=== PATIENT | female | born 1985 | race Caucasian/White ===

== ENCOUNTER 2017-07-31 13:31 | Emergency (ER) | payer BC ==
[2017-07-31 15:05] LABS: Basophils % (Auto) 0.4 % (0.0-1.8); Eosinophils % (Auto) 0.4 % (0.0-4.3); Hematocrit 41.8 % (30.3-42.9); Hemoglobin 13.6 gm/dl (10.1-14.3); Mean Corpuscular HGB Conc 33 % (30-34); Mean Corpuscular Hemoglobin 28 pg (28-32); Mean Corpuscular Volume 87 fl (79-97); Platelet Count 282 K/mm3 (140-440); Red Blood Count 4.82 M/mm3 (3.65-5.03); White Blood Count 11.9 K/mm3 (4.5-11.0)
[2017-07-31 15:22] LABS: Alanine Aminotransferase 38 units/L (7-56); Albumin/Globulin Ratio 1.5 %; Alkaline Phosphatase 65 units/L (35-129); Anion Gap 18 mmol/L; Blood Urea Nitrogen 9 mg/dL (7-17); Calcium 9.2 mg/dL (8.4-10.2); Carbon Dioxide 22 mmol/L (22-30); Chloride 104.4 mmol/L (98-107); Glucose 93 mg/dL (65-100); Lipase 52 units/L (13-60); Potassium 4.1 mmol/L (3.6-5.0); Sodium 140 mmol/L (137-145); Total Protein 6.7 g/dL (6.3-8.2)
[2017-07-31 15:31] LABS: Bilirubin,Urine NEG (Negative); Blood,Urine MOD (Negative); Ketones,Urine NEG (Negative); Leukocyte Esterase,Urine MOD (Negative); Mucus,Urine FEW /HPF; Nitrite,Urine NEG (Negative); Protein,Urine <15 mg/dL mg/dL (Negative); Urobilinogen,Urine < 2.0 mg/dL (<2.0)
--- NOTE | 2017-07-31 19:01 | Ultrasound Report ---
FINAL REPORT EXAM: US PELVIS DUPLEX DOPPLER COMP HISTORY: pelvic pain bilaterally irregular cycles. LMP 05/21/2017 TECHNIQUE: Ultrasound of the pelvis using transabdominal and transvaginal imaging PRIORS: None. FINDINGS: Uterus: Uterus is enlarged in size and heterogeneous in echogenicity. The uterus measures 10.4 x 5.0 x 6.1 cm in size. There is an ill-defined hypoechoic rounded focus in the posterior right side of the uterine fundus measuring 3.1 x 2.3 x 2.7 cm. This is probably a fibroid. Endometrial stripe: Normal and uniform in thickness measuring 3.6 mm. Ovaries: Both ovaries appear normal in size and echogenicity with normal arterial and venous blood flow bilaterally. The right ovary measures 3.5 x 1.5 x 3.0 cm and the left ovary measures 3.4 x 1.7 x 1.9 cm in size. There are bilateral echogenic linear Essure coils also identified within the uterine portion of the fallopian tubes. Other: There is no evidence for solid adnexal mass or free fluid in the cul-de-sac seen. IMPRESSION: 1. Enlarged heterogeneous uterus with a probable focal fibroid in the posterior right side of the fundus 2. Bilateral Essure coils are present in the uterine portion of the fallopian tubes.
[2017-07-31] MEDS ORDERED: PERCOCET 5/325 PO ONE (19:28)
[2017-07-31] MEDS ORDERED: XYLOCAINE 1% MPF 5 mL INFILTRATI ONE (19:35)
[2017-07-31] MEDS ORDERED: ROCEPHIN IM ONE (19:35)
--- NOTE | 2017-07-31 20:17 | Emergency Department Report ---
ED Abdominal Pain HPI - General Chief Complaint: Abdominal Pain Stated Complaint: VAGINAL PAIN, ABDOMINAL PAIN Time Seen by Provider: 07/31/17 19:18 Source: patient Mode of arrival: Ambulatory Limitations: No Limitations - History of Present Illness Initial Comments: 32-year-old female with a past medical history of leukemia, pancreatitis, and previous cholecystectomy presents to the hospital complaining of lower abdominal pain worsening times one week. Patient has had ongoing lower abdominal pain which she thinks has been present since her Essure -control coils placed 9 years ago. For the past 1 week pain has been constant, crampy, and rated 10/10 in intensity. Pain is worse with palpation and pain radiates to the back. Pain is also worse to her menstrual cycle. No alleviating factors reported. Patient was seen at [facility] on the and had a CT abdomen and pelvis that was unremarkable for acute findings. Pelvic exam at this time. She was diagnosed with UTI and placed on Cipro, Hurley, and Zofran. Patient follow up with her [facility] [facility] yesterday and had a pelvic exam with cultures performed. She was then placed on doxycycline and Flagyl. Patient continued to have pain and he was advised to come to the ER for reevaluation. Severity scale (0 -10): 10 - Related Data Previous Rx's Medication Instructions Recorded Last Taken Type oxyCODONE /ACETAMINOPHEN [Percocet 1 tab PO Q6HR PRN #20 tablet 07/31/17 Unknown Rx 5/325] Allergies Allergy/AdvReac Type Severity Reaction Status Date / Time No Known Allergies Allergy Unverified 07/31/17 14:27 ED Review of Systems ROS: Stated complaint: VAGINAL PAIN, ABDOMINAL PAIN Other details as noted in HPI Comment: All other systems reviewed and negative Other: Constitutional: No fevers chills Eyes: No eye pain visual changes ENT: No ear pain or throat pain Neck: Denies pain Respiratory: Denies cough wheezing shortness of breath Cardiovascular: Denies chest pain, palpitations, syncope GI: As per HPI : Denies dysuria Musculoskeletal: Denies joint swelling Skin: Denies rash, lesions, erythema Neurologic: Denies headache, numbness, weakness Psychiatric: Denies suicidal ideation, hallucinations ED Past Medical Hx - Past Medical History Additional medical history: past leukemia and pancreatitis - Surgical History Hx Cholecystectomy: Yes - Social History Smoking Status: Never Smoker Substance Use Type: None - Medications Home Medications: Home Medications Medication Instructions Recorded Confirmed Last Taken Type oxyCODONE /ACETAMINOPHEN [Percocet 1 tab PO Q6HR PRN #20 tablet 07/31/17 Unknown Rx 5/325] ED Physical Exam - General Limitations: No Limitations - Other Other exam information: General: No limitations, patient is alert in no acute distress Head exam: Atraumatic, normocephalic Eyes exam: Normal appearance ENT: Moist mucous membrane, normal oropharynx Neck exam: Normal inspection, full range of motion, no meningismus nontender Respiratory exam: Clear to auscultation bilateral, no wheezes, rales, crackles Cardiovascular: Normal rate and rhythm, normal heart sounds Abdomen: Soft, nondistended, superpubic tenderness, with normal bowel sounds, no rebound, or guarding Extremity: Full range of motion normal inspection no deformity Back: Normal Inspection, full range of motion, no tenderness Neurologic: Alert, oriented x3, cranial nerves intact, no motor or sensory deficit Psychiatric: normal affect, normal mood Skin: Warm, dry, intact ED Course Vital Signs 07/31/17 07/31/17 07/31/17 14:28 18:29 18:30 Temperature 98.1 F Pulse Rate 79 72 72 Respiratory 13 13 Rate Blood Pressure 159/84 128/93 Blood Pressure [Left] O2 Sat by Pulse 99 Oximetry 07/31/17 07/31/17 07/31/17 18:45 18:55 19:40 Temperature 98 F Pulse Rate 75 77 Respiratory 18 18 13 Rate Blood Pressure 137/89 Blood Pressure 145/93 [Left] O2 Sat by Pulse 98 97 Oximetry 07/31/17 19:45 Temperature Pulse Rate Respiratory 13 Rate Blood Pressure Blood Pressure [Left] O2 Sat by Pulse Oximetry - Reevaluation(s) Reevaluation #1: 07/31/17 20:15 Patient received IM Rocephin and Percocet - Consultations Consultation #1: 07/31/17 19:[address] Thorpe [employer]. Recommend IM Rocephin times one and changing pain medication to Percocet. She was informed of patient's ultrasound reports from today. She states she reviewed the urine culture from [facility] and suspect that patient had a contaminated urine sample and does not have a UTI. She will follow up on culture obtained in the office. Recommend follow-up on Wednesday at the rib at the office at 10:15 AM. She states patient will need to follow-up if indeed she wants a hysterectomy. ED Medical Decision Making - Lab Data Result diagrams: 07/31/17 14:50 07/31/17 14:50 Lab Results 07/31/17 07/31/17 07/31/17 Range/Units 14:50 14:50 14:55 WBC 11.9 H (4.5-11.0) K/mm3 RBC 4.82 (3.65-5.03) M/mm3 Hgb 13.6 (10.1-14.3) gm/dl Hct 41.8 (30.3-42.9) % MCV 87 (79-97) fl MCH 28 (28-32) pg MCHC 33 (30-34) % RDW 14.0 (13.2-15.2) % Plt Count 282 (140-440) K/mm3 Lymph % (Auto) 22.4 (13.4-35.0) % [place] % (Auto) 5.0 (0.0-7.3) % Eos % (Auto) 0.4 (0.0-4.3) % Baso % (Auto) 0.4 (0.0-1.8) % Lymph # 2.7 (1.2-5.4) K/mm3 [place] # 0.6 (0.0-0.8) K/mm3 Eos # 0.0 (0.0-0.4) K/mm3 Baso # 0.0 (0.0-0.1) K/mm3 Seg Neutrophils % 71.8 H (40.0-70.0) % Seg Neutrophils # 8.5 H (1.8-7.7) K/mm3 Sodium 140 (137-145) mmol/L Potassium 4.1 (3.6-5.0) mmol/L Chloride 104.4 (98-107) mmol/L Carbon Dioxide 22 (22-30) mmol/L Anion Gap 18 mmol/L BUN 9 (7-17) mg/dL Creatinine 0.6 L (0.7-1.2) mg/dL Estimated GFR > 60 ml/min BUN/Creatinine Ratio 15.00 % Glucose 93 (65-100) mg/dL Calcium 9.2 (8.4-10.2) mg/dL Total Bilirubin 0.60 (0.1-1.2) mg/dL AST 17 (5-40) units/L ALT 38 (7-56) units/L Alkaline Phosphatase 65 (35-129) units/L Total Protein 6.7 (6.3-8.2) g/dL Albumin 4.0 (3.9-5) g/dL Albumin/Globulin Ratio 1.5 % Lipase 52 (13-60) units/L Urine Color Yellow (Yellow) Urine Turbidity Clear (Clear) Urine pH 5.0 (5.0-7.0) Ur Specific [place] 1.015 (1.003-1.030) Urine Protein <15 mg/dl (Negative) mg/dL Urine Glucose (UA) Neg (Negative) mg/dL Urine Ketones Neg (Negative) mg/dL Urine Blood Mod (Negative) Urine Nitrite Neg (Negative) Urine Bilirubin Neg (Negative) Urine Urobilinogen < 2.0 (<2.0) mg/dL Ur Leukocyte Esterase Mod (Negative) Urine WBC (Auto) 9.0 H (0.0-6.0) /HPF Urine RBC (Auto) 11.0 (0.0-6.0) /HPF U Epithel Cells (Auto) 12.0 (0-13.0) /HPF Urine Mucus Few /HPF Urine HCG, Qual Negative (Negative) - Radiology Data Radiology results: report reviewed (ultrasound transvaginal/pelvic: Enlarged heterogeneous uterus with probable focal fibroid in the posterior right side of the fundus. Bilateral Essure coils in the uterine portion of the bilateral fallopian tubes) - Medical Decision Making Plan to discharge patient on Percocet as recommended by [facility] [facility] and encouraged follow-up as scheduled - Differential Diagnosis PID, chronic pain, fibroids, endometriosis Critical Care Time: No Critical care attestation.: If time is entered above; I have spent that time in minutes in the direct care of this critically ill patient, excluding procedure time. ED Disposition Clinical Impression: Uterine fibroid, Chronic pelvic pain in female Disposition: TO HOME OR SELFCARE Is pt being admited?: No Does the pt Need Aspirin: No Condition: Stable Instructions: Abdominal Pain (ED), Uterine Fibroids (ED) Additional Instructions: Take the pain medication and continue current antibiotics as prescribed. I have prescribed Percocet to take instead of the Hurley that you were previously prescribed at [facility]. Follow-up with Dr. Bruno in the office on Wednesday at 10: 15am. Prescriptions: oxyCODONE /ACETAMINOPHEN [Percocet 5/325] 1 tab PO Q6HR PRN #20 tablet PRN Reason: Pain Referrals: SHANTI THORPE MD [Staff Physician] - 08/02/17 10:15 am Time of Disposition: 20:20
[2017-07-31 20:43] VITALS: BP 132/75
== END 2017-07-31 20:41 | disposition home or self-care (01) ==
LOC: ED 13:31
DX: D25.9 Leiomyoma of uterus, unspecified (principal)
CPT/HCPCS: 36415; 76830; 80053; 81001; 81025; 83690; 85025; 93975; 96372; 99284; J0696